=== PATIENT | female | born 1970 | race African-American/Black ===

== ENCOUNTER 2017-01-04 17:08 | Emergency (ER) | payer OTHER ==
[2017-01-04 17:14] VITALS: BP 130/76; PULSE 82; TEMP 98.5; BMI 34.7
--- NOTE | 2017-01-04 20:45 | PDOC ---
History of Present Illness - General History Source: Patient Exam Limitations: No Limitations - History of Present Illness Initial Comments: 01/04/17 21:10 The patient is a 46 year old female with a significant past medical history of Colon CA (in remission 9 years ago), asthma, and chronic back pain who presents to the ED with complaints of right elbow pain since yesterday. The patient reports progressively worsening right elbow pain and swelling. She reports tingling radiating down her right arm and slight right shoulder pain. She states that she is unable to extend her right arm secondary to pain. Patient notes she regularly sleeps on her left shoulder. She reports taking 2 aleve last night with no relief. Denies chest pain or shortness of breath. Denies fevers or chills. Denies lightheadedness or dizziness. Denies abdominal pain, nausea, vomiting, or diarrhea. Denies any other symptoms. Social hx: The patient regularly spends her time on a computer and has known mild carpal tunnel. <Mandie Toscano - Last Filed: 01/05/17 03:03> <Sandi Najera - Last Filed: 01/05/17 19:34> - General Chief Complaint: Pain Stated Complaint: RT ARM PAIN Time Seen by Provider: 01/04/17 19:55 Past History <Mandie Toscano - Last Filed: 01/05/17 03:03> - Past Medical History Asthma: Yes Cancer: Yes (COLON) GI Disorders: Yes (CA) Other medical history: 2 herniated disck - Surgical History Abdominal Surgery: Yes (HEMICOLECTOMY, TUBAL LIGATION) - Psycho/Social/Smoking Cessation Hx Anxiety: No Suicidal Ideation: No Smoking Status: No Smoking History: Never smoked Have you smoked in the past 12 months: No Number of Cigarettes Smoked Daily: 0 Information on smoking cessation initiated: No Hx Alcohol Use: No Drug/Substance Use Hx: No Substance Use Type: None <Sandi Najera - Last Filed: 01/05/17 19:34> - Past Medical History Allergies/Adverse Reactions: Allergies Allergy/AdvReac Type Severity Reaction Status Date / Time Shellfish Allergy Verified 01/04/17 17:09 shellfish Allergy Uncoded 01/04/17 17:09 Home Medications: Ambulatory Orders Albuterol Sulfate Inhaler - [Ventolin HFA Inhaler -] 1 - 2 inh IH PRN PRN #0 inh 03/01/12 Cyclobenzaprine HCl [Flexeril -] 10 mg PO TID #21 tablet 01/16/14 Docusate Sodium [Colace] 100 mg PO BID #120 capsule 01/16/14 Oxycodone HCl/Acetaminophen [Percocet 5-325 mg Tablet -] 1 - 2 tab PO Q4H #20 tablet 01/16/14 Polyethylene Glycol 3350 [Miralax 255 gm Btl -] 17 gm PO DAILY #1 bottle Review of Systems - Review of Systems Able to Perform ROS?: Yes Comments:: 01/04/17 21:10 CONSTITUTIONAL: Absent: fever, chills, diaphoresis, generalized weakness, malaise, loss of appetite HEENT: Absent: rhinorrhea, nasal congestion, throat pain, throat swelling, difficulty swallowing, mouth swelling, ear pain, eye pain, visual Changes CARDIOVASCULAR: Absent: chest pain, syncope, palpitations, irregular heart rate, lightheadedness , peripheral edema RESPIRATORY: Absent: cough, shortness of breath, dyspnea with exertion, orthopnea, wheezing, stridor, hemoptysis GASTROINTESTINAL: Absent: abdominal pain, abdominal distension, nausea, vomiting, diarrhea, constipation, melena, hematochezia GENITOURINARY: Absent: dysuria, frequency, urgency, hesitancy, hematuria, flank pain, genital pain MUSCULOSKELETAL: + right elbow pain, right elbow swelling SKIN: Absent: rash, itching, pallor HEMATOLOGIC/IMMUNOLOGIC: Absent: easy bleeding, easy bruising, lymphadenopathy, frequent infections ENDOCRINE: Absent: unexplained weight gain, unexplained weight loss, heat intolerance, cold intolerance NEUROLOGIC: Absent: headache, focal weakness or paresthesias, dizziness, unsteady gait, seizure, mental status changes, bladder or bowel incontinence PSYCHIATRIC: Absent: anxiety, depression, suicidal or homicidal ideation, hallucinations. All Other Systems: Reviewed and Negative <Mandie Toscano - Last Filed: 01/05/17 03:03> *Physical Exam - Vital Signs Last Vital Signs Temp Pulse Resp BP Pulse Ox 98.5 F 82 18 130/76 100 01/04/17 17:11 01/04/17 17:11 01/04/17 17:11 01/04/17 17:11 01/04/17 17:11 - Physical Exam Comments: 01/04/17 21:11 GENERAL: Well developed, well nourished. Awake and alert. No acute distress. HEENT: Normocephalic, atraumatic. PERRLA, EOMI. No conjunctival pallor. Sclera are non- icteric. Moist mucous membranes. Oropharynx is clear. NECK: Supple. Full ROM. No JVD. Carotid pulses 2+ and symmetric, without bruits. No thyromegaly. NCo lymphadenopathy. CARDIOVASCULAR: Regular rate and rhythm. No murmurs, rubs, or gallops. Distal pulses are 2+ and symmetric. PULMONARY: No evidence of respiratory distress. Lungs clear to auscultation bilaterally. No wheezing, rales or rhonchi. ABDOMINAL: Soft. Non-tender. Non-distended. No rebound or guarding. No organomegaly. Normoactive bowel sounds. MUSCULOSKELETAL Normal range of motion at all joints. No bony deformities or tenderness. No CVA tenderness. EXTREMITIES: + Slight tenderness at the right olecranon, unable to extend right elbow completely, no erythema, no swelling appreciates. Good pulses, capillary refill is normal. Muscle tenderness in the right shoulder. SKIN: Warm and dry. Normal capillary refill. No rashes. No jaundice. NEUROLOGICAL: Alert, awake, appropriate. Cranial nerves 2-12 intact. No deficits to light touch and temperature in face, upper extremities and lower extremities. No motor deficits in the in face, upper extremities and lower extremities. Normoreflexic in the upper and lower extremities. Normal speech. Toes are down- going bilaterally. Gait is normal without ataxia. PSYCHIATRIC: Cooperative. Good eye contact. Appropriate mood and affect. <Mandie Toscano - Last Filed: 01/05/17 03:03> - Vital Signs Last Vital Signs Temp Pulse Resp BP Pulse Ox 98.5 F 82 18 130/76 100 01/04/17 17:11 01/04/17 17:11 01/04/17 17:11 01/04/17 17:11 01/04/17 17:11 <Sandi Najera - Last Filed: 01/05/17 19:34> ED Treatment Course - LABORATORY CBC & Chemistry Diagram: 01/05/17 02:27 01/04/17 21:17 - RADIOLOGY Radiograph Interpretation: 01/05/17 03:03 EXAM: Venous duplex unilateral, right upper extremity IMPRESSION: No DVT. Reported by: Imaging reconditioner, Joel Jordan MD <Mandie Toscano - Last Filed: 01/05/17 03:03> - LABORATORY CBC & Chemistry Diagram: 01/05/17 02:27 01/04/17 21:17 <Sandi Najera - Last Filed: 01/05/17 19:34> Medical Decision Making - Medical Decision Making 01/04/17 23:52 Sono is normal and elbow XR is normal. Pt has an elevated d-dimer; however d-dimer was high once in the past 700s, secondary to her history of colon cancer; it has been worked up in the past.. Today it is 900s. Her sed rate is normal. However, there is no DVT in pt's RUE; also pt has no fractures in the elbow and her arm xray is normal Pt will be discharged with OTC pain meds. <Sandi Najera - Last Filed: 01/05/17 19:34> *DC/Admit/Observation/Transfer - Attestations Scribe Attestion: 01/04/17 21:11 Documentation prepared by Mandie Toscano, acting as medical device sales representative for Sandi Najera MD <Mandie Toscano - Last Filed: 01/05/17 03:03> - Discharge Dispostion Admit: No <Sandi Najera - Last Filed: 01/05/17 19:34> Diagnosis at time of Disposition: Elbow pain, right - Discharge Dispostion Disposition: HOME Condition at time of disposition: Stable - Referrals Referrals: Arnold Coy MD [Primary Care Provider] - Roberto George MD [Staff Physician] - - Patient Instructions Printed Discharge Instructions: DI for Elbow Sprain
[2017-01-04] MEDS ORDERED: METHOCARBAMOL 500 MG TABLET PO ONE (21:03)
[2017-01-04] MEDS ORDERED: OXYCODONE/APAP 5/325MG COMBO TABLET PO ONE (21:03)
[2017-01-04] MEDS ORDERED: METHOCARBAMOL 500 MG TABLET ONE (21:10)
[2017-01-04] MEDS ORDERED: OXYCODONE/APAP 5/325MG COMBO TABLET ONE (21:10)
[2017-01-04 22:27] LABS: CALCIUM 8.5 mg/dL (8.5-10.1); COCKROFT - GAULT 152.9575; CREATININE 0.7 mg/dL (0.55-1.02)
[2017-01-05 02:48] LABS: BASOPHIL 0.2 % (0-2.0); EOSINOPHIL 0.9 % (0-4.5); MCH 26.6 pg (25.7-33.7); MCHC 32.7 g/dl (32.0-36.0); MEAN CELL VOLUME 81.3 fl (80-96); MEAN PLT VOLUME 8.5 fl (7.5-11.1); NEUTROPHILS 67.1 % (42.8-82.8); PLATELET COUNT 185 K/MM3 (134-434); RDW 16.6 % (11.6-15.6); WHITE BLOOD COUNT 6.3 K/mm3 (4.0-10.0)
--- NOTE | 2017-01-07 10:34 | EKG ---
Test Reason : Blood Pressure : / mmHG Vent. Rate : 059 BPM Atrial Rate : 059 BPM P-R Int : 152 ms QRS Dur : 090 ms QT Int : 456 ms P-R-T Axes : 070 040 040 degrees QTc Int : 451 ms SINUS BRADYCARDIA OTHERWISE NORMAL ECG WHEN COMPARED WITH ECG OF 29-FEB-2012 00:31, NONSPECIFIC T WAVE ABNORMALITY LESS PROMINENT Confirmed by MILLER BROOKE MD ([id number]) on 01/07/2017 10:34:09 AM Referred By: Confirmed By:MILLER BROOKE MD
== END 2017-01-05 03:12 | disposition home or self-care (01) ==
LOC: JER 17:08
DX: M25.521 Pain in right elbow (principal); J45.909 Unspecified asthma, uncomplicated; M54.89 Other dorsalgia; G89.29 Other chronic pain; Z85.038 Personal history of other malignant neoplasm of large intestine
CPT/HCPCS: 36415; 73070-TC-RT; 80048; 85025; 85379; 85651; 93005; 93010; 93971; 99281-25

== ENCOUNTER 2017-07-19 22:40 | Emergency (ER) | payer OTHER ==
[2017-07-19] MEDS ORDERED: NAPROXEN 500 MG TABLET (FP) PO ONE (22:42)
[2017-07-19] MEDS ORDERED: CYCLOBENZAPRINE HCL 5 MG TABLET PO ONE (22:42)
--- NOTE | 2017-07-19 22:44 | PDOC ---
History of Present Illness - General Chief Complaint: Pain Stated Complaint: PAIN TO RT SHOULDER, NECK SINCE SATURDAY Time Seen by Provider: 07/19/17 22:41 History Source: Patient Exam Limitations: No Limitations - History of Present Illness Initial Comments: 07/19/17 22:44 46 year old female with history colon cancer s/p resection, in remission, presents with R shoulder/R neck pain x 5 days. Pt noted several days ago that the pain was reproducible with R arm movements and palpation of R mid upper back. States occasionally feels tingling down her R arm with some arm movements. Denies neck pain, numbness, weakness. Has been taking alleve with some minimal effect. Denies midsternal chest pain, or SOB. Past History - Past Medical History Allergies/Adverse Reactions: Allergies Allergy/AdvReac Type Severity Reaction Status Date / Time Shellfish Allergy Verified 07/19/17 22:41 shellfish Allergy Uncoded 07/19/17 22:41 Home Medications: Ambulatory Orders Albuterol Sulfate Inhaler - [Ventolin HFA Inhaler -] 1 - 2 inh IH PRN PRN #0 inh 03/01/12 Cyclobenzaprine HCl [Flexeril 10 mg] 10 mg PO TID PRN #21 tablet 07/19/17 Naproxen [Naprosyn -] 500 mg PO BID PRN #20 tablet 07/19/17 Asthma: Yes Cancer: Yes (COLON) GI Disorders: Yes (CA) - Surgical History Abdominal Surgery: Yes (HEMICOLECTOMY, TUBAL LIGATION) - Suicide/Smoking/Psychosocial Hx Smoking Status: No Smoking History: Never smoked Have you smoked in the past 12 months: No Number of Cigarettes Smoked Daily: 0 Hx Alcohol Use: No Drug/Substance Use Hx: No Substance Use Type: None Review of Systems - Review of Systems Able to Perform ROS?: Yes Comments:: 07/19/17 22:45 GENERAL/CONSTITUTIONAL: No fever, weakness. HEAD, EYES, EARS, NOSE AND THROAT: No change in vision. No ear pain or discharge. No sore throat. CARDIOVASCULAR: No chest pain or shortness of breath. RESPIRATORY: No cough, wheezing, or hemoptysis. GASTROINTESTINAL: No abdominal pain, nausea, vomiting, diarrhea, or decreased PO intolerance. GENITOURINARY: No dysuria, frequency, or change in urination. MUSCULOSKELETAL: + neck, right shoulder pain. SKIN: No rash NEUROLOGIC: No headache, vertigo, loss of consciousness, or change in strength/ sensation. ENDOCRINE: No increased thirst. No abnormal weight change. HEMATOLOGIC/LYMPHATIC: No anemia, easy bleeding, or history of blood clots. ALLERGIC/IMMUNOLOGIC: No hives or skin allergy. *Physical Exam - Physical Exam Comments: 07/19/17 22:46 GENERAL: Awake, alert, and fully oriented, in no acute distress. HEAD: No signs of trauma EYES: PERRLA, EOMI, sclera anicteric, conjunctiva clear ENT: Auricles normal inspection, hearing grossly normal, nares patent NECK: Normal ROM, supple. TTP Right paracervical muscle. TTP R trapezius. No bony tenderness. 2+ radial pulse. Sensation intact throughout median/radian/ ulnar/deltoid distribution. Full strength. EXTREMITIES: Normal range of motion, no edema. No clubbing or cyanosis. No cords, erythema, or tenderness NEUROLOGICAL: Cranial nerves II through XII grossly intact. Normal speech, normal gait SKIN: Warm, Dry, normal turgor, no rashes or lesions noted. Medical Decision Making - Medical Decision Making 07/19/17 22:46 I suspect that this is likely muscle spasm/musculoskeletal pain. I doubt cardiac or pulmonary etiology. NSAIDS, muscle relaxants, heat packs and follow up with PMD. Return precautions given if symptoms worsen. I discussed the physical exam findings, ancillary test results and final diagnoses with the patient. I answered all of the patient's questions. The patient was satisfied with the care received and felt comfortable with the discharge plan and treatment plan. The patient will call their primary care physician within 24 hours to arrange follow-up and will return to the Emergency Department with any new, persistant or worsening symptoms. *DC/Admit/Observation/Transfer Diagnosis at time of Disposition: Shoulder pain, right Qualifiers: Chronicity: acute Qualified Code(s): M25.511 - Pain in right shoulder - Discharge Dispostion Disposition: HOME Condition at time of disposition: Good Admit: No - Prescriptions Prescriptions: Cyclobenzaprine HCl [Flexeril 10 mg] 10 mg PO TID PRN #21 tablet PRN Reason: Muscle Spasm Naproxen [Naprosyn -] 500 mg PO BID PRN #20 tablet PRN Reason: Pain - Referrals - Patient Instructions Printed Discharge Instructions: DI for Shoulder Pain, DI for Neck Pain Additional Instructions: Take 500 mg naproxen (Alleve) every 12 hours as needed for pain. Take 10 mg flexeril (muscle relaxant) every 8 hours as needed for muscle spasm. Heat packs several times a day. It may take several days before your symptoms improve. Follow up with your doctor. - Post Discharge Activity
[2017-07-19 23:39] VITALS: BP 126/74; PULSE 88; TEMP 98.4; BMI 34.3
== END 2017-07-19 23:40 | disposition home or self-care (01) ==
LOC: FER 22:40
DX: M25.511 Pain in right shoulder (principal); Z85.038 Personal history of other malignant neoplasm of large intestine
CPT/HCPCS: 99282-25

== ENCOUNTER 2021-05-08 04:28 | Day surgery (SDC) | payer OTHER ==
[2021-05-04 15:30] VITALS: BMI 36.8
[~2021-05-08 04:28] MED LIST: BUPIVACAINE HCL/PF 0.25% (2.5MG/ML) 10 ML VIAL IJ ONE; DEXAMETHASONE SOD PHOSPHATE 4 MG/1 ML VIAL NR ONE; IOHEXOL 180 MG/1 ML ML IJ ONE; LIDOCAINE HCL 1%, 10 MG/ML (20ML VIAL) NR ONE
[2021-05-08] MEDS ORDERED: MIDAZOLAM HCL 2 MG/2 ML SINGLE DOSE VIAL ONE (09:41)
[2021-05-08] MEDS ORDERED: LIDOCAINE HCL 1%, 10 MG/ML (20ML VIAL) NR ONE (10:13)
[2021-05-08] MEDS ORDERED: DEXAMETHASONE SOD PHOSPHATE 10 MG/1 ML VIAL IM ONE (10:21)
[2021-05-08] MEDS ORDERED: BUPIVACAINE HCL/PF 0.25% (2.5MG/ML) 10 ML VIAL IJ ONE (10:21)
[2021-05-08] MEDS ORDERED: DEXAMETHASONE SOD PHOSPHATE 10 MG/1 ML VIAL ONE (10:33)
[2021-05-08 12:04] VITALS: BP 149/84; PULSE 69; TEMP 97.9
== END 2021-05-08 12:15 | disposition home or self-care (01) ==
LOC: JASU-SURG 04:28
PROVIDERS: ATTEND Physical Medicine & Rehabilitation
PROC: 3E0R33Z Introduction of Anti-inflammatory into Spinal Canal, Percutaneous Approach (ICD-10-PCS; 2021-05-08)
PROC: 3E0R3BZ Introduction of Anesthetic Agent into Spinal Canal, Percutaneous Approach (ICD-10-PCS; principal; 2021-05-08 09:30)
DX: M54.16 Radiculopathy, lumbar region (principal); M54.5 Low back pain
CPT/HCPCS: 76000-TC-FY; 81025; J1100

== ENCOUNTER 2023-08-06 22:25 | Emergency (ER) | payer OTHER ==
[2023-08-06 22:34] VITALS: BP 133/74; PULSE 72; RESP 18; TEMP 98.3; BMI 30.7
[2023-08-07] MEDS ORDERED: KETOROLAC TROMETHAMINE 60 MG/2 ML VIAL IM ONE (00:48)
[2023-08-07] MEDS ORDERED: KETOROLAC TROMETHAMINE 60 MG/2 ML VIAL ONE (00:51)
== END 2023-08-07 01:47 | disposition home or self-care (01) ==
LOC: FER 22:25
PROC: 3E0233Z Introduction of Anti-inflammatory into Muscle, Percutaneous Approach (ICD-10-PCS; principal; 2023-08-07)
DX: M79.604 Pain in right leg (principal); M54.16 Radiculopathy, lumbar region
CPT/HCPCS: 93971-TC; 96372; 99284-25

== ENCOUNTER 2023-12-16 07:08 | Emergency (ER) | payer OTHER ==
[2023-12-16 07:13] VITALS: BP 136/86; PULSE 72; RESP 17; TEMP 99.2; BMI 30.7
[2023-12-16] MEDS ORDERED: CLINDAMYCIN HCL 150 MG CAPSULE (FP) ONE (08:06)
[2023-12-16] MEDS: AMOX TR/POT CLAV 875MG/125MG TABLETS (FP) PO ONE (08:09)
== END 2023-12-16 08:39 | disposition home or self-care (01) ==
LOC: FER 07:08
DX: M79.645 Pain in left finger(s) (principal); L03.012 Cellulitis of left finger; R22.32 Localized swelling, mass and lump, left upper limb
CPT/HCPCS: 73130-TC-LT-FY; 99283-25